=== PATIENT | female | born 1985 | race Hispanic/Latino ===

== ENCOUNTER 2021-05-31 06:58 | Observation (INO) | payer MEDICAID ==
[~2021-05-31] VITALS: Ht 157.5 cm; Wt 73.9 kg
[~2021-05-31 06:58] MED LIST: IBUP-2088 PO; iron PO
[2021-05-31 06:59] VITALS: BP 130/74
[2021-05-31 07:41] LABS: APPEARANCE,URINE Cloudy (CLEAR); BILIRUBIN,URINE Negative (NEGATIVE); COLOR,URINE Yellow (YELLOW); GLUCOSE, URINE (UA) Negative (NEGATIVE); KETONES,URINE Negative (NEGATIVE); LEUKOCYTE ESTERASE ,URINE Small (NEGATIVE); NITRATE,URINE Negative (NEGATIVE); OCCULT BLOOD,URINE Negative (NEGATIVE); PH,URINE 7.5 (5.0-8.0); PROTEIN,URINE Negative (NEGATIVE)
[2021-05-31 08:13] LABS: BACTERIA,URINE Rare /HPF (None Seen); RBC,URINE 0-1 /HPF (0-1); SQUAMOUS EPITHELIAL CELL,UR Many /HPF (0-2); WBC,URINE 0-1 /HPF (0-1)
== END 2021-05-31 09:00 | disposition home or self-care (01) ==
LOC: EDH 06:58 → LDH 06:59
PROVIDERS: ADMIT Obstetrics & Gynecology; ATTEND Obstetrics & Gynecology
DX: O26.893 Other specified pregnancy related conditions, third trimester (principal); R10.9 Unspecified abdominal pain; N89.8 Other specified noninflammatory disorders of vagina; Z3A.38 38 weeks gestation of pregnancy
CPT/HCPCS: 59025; 81001; G0378 ×2; G0379

== ENCOUNTER 2021-06-04 20:05 | Inpatient (IN) | payer MEDICAID ==
[~2021-06-04] VITALS: Ht 157.5 cm; Wt 73.0 kg
[2021-06-04 20:30] LABS: APPEARANCE,URINE Clear (CLEAR); BILIRUBIN,URINE Negative (NEGATIVE); COLOR,URINE Yellow (YELLOW); GLUCOSE, URINE (UA) Negative (NEGATIVE); KETONES,URINE Negative (NEGATIVE); LEUKOCYTE ESTERASE ,URINE Trace (NEGATIVE); NITRATE,URINE Negative (NEGATIVE); OCCULT BLOOD,URINE Negative (NEGATIVE); PH,URINE 5.5 (5.0-8.0); PROTEIN,URINE Negative (NEGATIVE)
[2021-06-04] MEDS ORDERED: AMPICILLIN 2GM+NS 100ML 100 ML IV SCH (20:30)
[2021-06-04 20:36] LABS: BACTERIA,URINE Few /HPF (None Seen); RBC,URINE 0-1 /HPF (0-1); SQUAMOUS EPITHELIAL CELL,UR Moderate /HPF (0-2)
[2021-06-04] MEDS: LACTATED RINGERS 1000ML 1,000 ML IV PRN (20:53)
[2021-06-04 21:08] LABS: HEMATOCRIT 25.3 % (36-48); MEAN CORPUSCULAR HEMOGLOBIN 21.4 pg (27.0-33.0); MEAN CORPUSCULAR HGB CONC 29.2 g/dL (32.0-36.0); MEAN CORPUSCULAR VOLUME 73.1 fL (79-99); NUCLEATED RED BLOOD CELLS 0.3 % (0.0-0.19); PLATELET COUNT (AUTO) 243 K/uL (130-400); RED BLOOD CELL COUNT(AUTO) 3.46 MIL/uL (4.00-5.50); RED CELL DISTRIBUTION WIDTH 17.2 % (11.0-15.5); WHITE BLOOD COUNT (AUTO) 9.6 K/uL (4.8-10.8)
[2021-06-05] MEDS: AMPICILLIN 1GM+NS 50ML 50 ML IV SCH ×4 (00:58→12:50)
[2021-06-05] MEDS: LACTATED RINGERS 1000ML 1,000 ML IV PRN (01:04)
[2021-06-05 03:40] VITALS: BP 109/56
[2021-06-05] MEDS ORDERED: PREN-196 PO (03:46)
[2021-06-05] MEDS ORDERED: OXYTOCIN-LR 20 UNITS/1000 ML 1,000 ML IV SCH ×2 (08:00→16:30)
[2021-06-05] MEDS ORDERED: LACTATED RINGERS 500 ML 500 ML IV PRN (10:30)
[2021-06-05] MEDS ORDERED: NALOXONE HCL 0.4 MG/1 ML ML IV PRN (10:30)
[2021-06-05] MEDS ORDERED: EPHEDRINE SULFATE 50 MG/ML AMPULE IVP PRN (10:30)
[2021-06-05] MEDS ORDERED: ROPIVACAINE 0.2% 100ML VIAL 100 ML EP SCH (10:30)
[2021-06-05] MEDS ORDERED: FENTANYL CITRATE PF 50 MCG/1 ML 2ML VIAL ONE (10:48)
[2021-06-05] MEDS ORDERED: BENZOCAINE/LANOLIN/ALOE VERA 60 ML AEROSOL TP PRN (16:30)
[2021-06-05] MEDS ORDERED: ACETAMINOPHEN 325 MG TAB PO PRN (16:30)
[2021-06-05] MEDS ORDERED: MEASLES/MUMPS/RUBELLA VACCINE, LIVE 0.5 ML/VIAL SQ PRN (16:30)
[2021-06-05] MEDS ORDERED: WITCH HAZEL 1 PAD TP PRN (16:30)
[2021-06-05] MEDS ORDERED: DIPH,PERTUSS(ACELL),TET VAC/PF 0.5 ML VIAL IM PRN (16:30)
[2021-06-05] MEDS ORDERED: LANOLIN 30GM OINTMENT TP PRN (16:30)
[2021-06-05] MEDS ORDERED: ACETAMINOPHEN WITH CODEINE 1 TAB TAB PO PRN (16:30)
[2021-06-05] MEDS: IBUPROFEN 600 MG TABLET PO PRN (18:44)
[2021-06-05 19:30] VITALS: BP 120/72
[2021-06-05] MEDS: DOCUSATE SODIUM 100 MG CAP PO SCH (20:30)
[2021-06-05 23:17] VITALS: BP 108/67
[2021-06-06] MEDS: IBUPROFEN 600 MG TABLET PO PRN ×2 (02:23→08:52)
[2021-06-06 03:54] VITALS: BP 107/54
[2021-06-06 06:28] LABS: HEMATOCRIT 23.5 % (36-48); MEAN CORPUSCULAR HEMOGLOBIN 21.5 pg (27.0-33.0); MEAN CORPUSCULAR HGB CONC 28.9 g/dL (32.0-36.0); MEAN CORPUSCULAR VOLUME 74.1 fL (79-99); NUCLEATED RED BLOOD CELLS 0.2 % (0.0-0.19); RED BLOOD CELL COUNT(AUTO) 3.17 MIL/uL (4.00-5.50); RED CELL DISTRIBUTION WIDTH 17.1 % (11.0-15.5); WHITE BLOOD COUNT (AUTO) 12.4 K/uL (4.8-10.8)
[2021-06-06 07:11] VITALS: BP 117/70
[2021-06-06 07:15] LABS: HEPATITIS Bs ANTIGEN SCREEN P Negative (Negative)
[2021-06-06] MEDS: DOCUSATE SODIUM 100 MG CAP PO SCH (08:50)
[2021-06-06 12:06] VITALS: BP 123/65
[2021-06-06 16:05] VITALS: BP 120/75
== END 2021-06-06 16:50 | disposition home or self-care (01) | DRG 560 ==
LOC: LDH 20:05 → WSH 06-05 18:28
PROVIDERS: ADMIT Obstetrics & Gynecology; ATTEND Obstetrics & Gynecology
PROC: 10E0XZZ Delivery of Products of Conception, External Approach (ICD-10-PCS; principal; 2021-06-05)
PROC: 3E0R3BZ Introduction of Anesthetic Agent into Spinal Canal, Percutaneous Approach (ICD-10-PCS; 2021-06-05)
PROC: 00HU33Z Insertion of Infusion Device into Spinal Canal, Percutaneous Approach (ICD-10-PCS; 2021-06-05)
PROC: 3E0234Z Introduction of Serum, Toxoid and Vaccine into Muscle, Percutaneous Approach (ICD-10-PCS; 2021-06-05)
PROC: 3E0134Z Introduction of Serum, Toxoid and Vaccine into Subcutaneous Tissue, Percutaneous Approach (ICD-10-PCS; 2021-06-05)
DX: O99.824 Streptococcus B carrier state complicating childbirth (principal); Z23 Encounter for immunization; Z37.0 Single live birth; Z3A.39 39 weeks gestation of pregnancy
CPT/HCPCS: 36415; 81001; 85027; 86592; 86850; 86900; 86901; 87340; A4314; G0378; J0290; J2590; J3010; J7120